=== PATIENT | male | born 1980 | race Caucasian/White ===

== ENCOUNTER → 2016-12-13 | Outpatient (CLI) | payer BC ==
[~2016-12-13] MED LIST: IBUPROFEN
--- NOTE | ~2016-12-13 | US85 ---
[facility] A Service of [facility] & [facility] RADIOLOGY TEXT RESULTS PATIENT: TIBURCIO DODD LOCATION: CNIV : 84 UNIT #: [id number] AGE: [address]: Norman Esquivel MD SEX: M ORDER DR: [id number] [facility] [address] [place], [place] [address] [id number] O MR#: [id number] Acc #: [id number] NAME: TIBURCIO DODD : 1980 SEX: M STUDY DATE/TIME: 12/13/2016 15:25 UNIT: CNIV ROOM: STUDY DESCRIPTION: [facility] or [facility] Attending Physician: Norman Esquivel M.D. Referring Physician: Norman Esquivel M.D. Ordering Physician: Norman Esquivel M.D. Primary Care Physician: Leonardo Dillon [facility] MEDICAL IMAGING REPORT This report is preliminary unless electronic signature is present EXAM Right lower extremity venous duplex 12/13/2016 HISTORY Right lower extremity edema and pain to touch for 1 year. Evaluate for deep vein thrombosis. TECHNIQUE Venous ultrasound examination of the right lower extremity was performed using grayscale, spectral Doppler and color flow Doppler imaging. FINDINGS The examination is negative. There is no evidence of right lower extremity deep venous thrombus from the groin to the lower calf. Visualized greater saphenous vein is also patent. IMPRESSION Negative examination. No evidence of right lower extremity deep venous thrombosis. Dictated by... Geovany Gil M.D. THIS IS AN ELECTRONICALLY VERIFIED REPORT Geovany Gil M.D. at 12/14/2016 7:18 AM KRT/pcl TD: 12/13/2016 23:41 JOB #: [id number] MEDICAL IMAGING REPORT [facility] A Service [facility] & [facility] RADIOLOGY TEXT RESULTS PATIENT: TIBURCIO DODD LOCATION: CNIV : 84 UNIT #: [id number] AGE: [address]: Norman Esquivel MD SEX: M ORDER DR: Page 1 of 1 COPY
== END | disposition home or self-care (01) ==
LOC: CNIV 12-08 09:30
DX: M79.89 Other specified soft tissue disorders (principal); M79.661 Pain in right lower leg
CPT/HCPCS: 93971